=== PATIENT | female | born 1975 | race African-American/Black ===

== ENCOUNTER 2020-04-27 19:26 | Emergency (ER) | payer BC ==
--- NOTE | 2020-04-27 20:36 | RAD REPORT ---
EXAM DESCRIPTION: US - Extrem Venous W Compress Ajay - 04/27/2020 8:28 pm CLINICAL HISTORY: Pain;Swelling Bilateral leg edema and swelling. COMPARISON: No comparisons TECHNIQUE: Real-time sonographic interrogation of the left and right lower extremity deep venous sys tems was performed. FINDINGS: Normal compressibility, flow augmentation, phasic flow and spontaneous flow is identified in both the left and right lower extremity deep venous systems. IMPRESSION: No sonographic evidence of left or right lower extremity deep venous thrombosis.
[2020-04-27 20:57] LABS: Absolute Lymphocytes (CBC) 2.8 K/uL (0.7-4.9); Hematocrit 38.4 % (36.0-45.0); Lymphocytes % 24.1 % (15.3-44.8); RBC Red Blood Cell Count 4.18 M/uL (3.86-4.86)
--- NOTE | 2020-04-27 21:00 | RAD REPORT ---
EXAM DESCRIPTION: RAD - Chest Single View - 04/27/2020 8:41 pm CLINICAL HISTORY: SWELLING Chest pain. COMPARISON: No comparisons FINDINGS: Portable technique limits examination quality. The lungs are grossly clear. The heart is normal in size. No displaced fractures. IMPRESSION: No acute intrathoracic process suspected.
[2020-04-27] MEDS ORDERED: HYDROCODONE/APAP 10/325 TAB ONE (21:01)
[2020-04-27 21:10] LABS: BUN Blood Urea Nitrogen 16 mg/dL (7-18); Bicarbonate 29 mmol/L (21-32); Glucose Level 89 mg/dL (74-106); NT PRO-BNP 87 pg/mL (<125); Potassium 4.6 mmol/L (3.5-5.1); Sodium Level 139 mmol/L (136-145)
--- NOTE | 2020-04-27 22:53 | ER ---
Nurse's Notes [facility] Name: Nadia Walker Age: 44 yrs Sex: Female : 1975 Arrival Date: 04/27/2020 Time: 19:31 Bed 17 Private MD: Diagnosis: Pain in left leg;Pain in right leg Presentation: 04/27 19:39 Chief complaint: Patient states: Bilateral leg swelling for 3 days. Covid since 04/14. ll1 Coronavirus screen: Client denies travel out of the [place] in the last 14 days. congestion, cough unrelated to allergies, difficulty breathing, Client presents with at least one sign or symptom that may indicate coronavirus-19. Standard/surgical mask placed on the client. Client reports previous positive COVID test result. Ebola Screen: Patient denies travel to an Ebola-affected area in the 21 days before illness onset. Initial Sepsis Screen: Does the patient meet any 2 criteria? HR > 90 bpm. No. Patient's initial sepsis screen is negative. Does the patient have a suspected source of infection? Yes: Productive cough/pneumonia. Risk Assessment: Do you want to hurt yourself or someone else? Patient reports no desire to harm self or others. Onset of symptoms was April 25, 2020. 19:39 Method Of Arrival: Wheelchair ll1 19:39 Acuity: JOSEFA 3 ll1 Historical: - Allergies: 19:42 No Known Allergies; ll1 - PMHx: 19:42 None; ll1 - PSHx: 19:42 None; ll1 - Immunization history:: Flu vaccine is up to date. - Social history:: Smoking status: Reported history of juuling and/or vaping. Patient denies any tobacco usage or history of. Screenin:00 Abuse screen: Denies threats or abuse. Nutritional screening: No deficits noted. em Tuberculosis screening: No symptoms or risk factors identified. Fall Risk None identified. Assessment: 22:00 General: Appears in no apparent distress. Behavior is calm, cooperative, appropriate em for age. Pain: Complains of pain in left leg and right leg. Neuro: Level of Consciousness is awake, alert, obeys commands, Oriented to person, place, time, situation. Cardiovascular: Patient's skin is warm and dry. Respiratory: Airway is patent Respiratory effort is even, unlabored, Respiratory pattern is regular, symmetrical. GI: No signs and/or symptoms were reported involving the gastrointestinal system. : No signs and/or symptoms were reported regarding the genitourinary system. EENT: No signs and/or symptoms were reported regarding the EENT system. 23:00 Reassessment: Patient and/or family updated on plan of care and expected duration. Pain ll2 level reassessed. Patient is alert, oriented x 3, equal unlabored respirations, skin warm/dry/pink. Vital Signs: 19:39 Pulse 93; Resp 18; Temp 97.6; Pulse Ox 99% ; Weight 101.6 kg; Height 5 ft. 5 in. ll1 (165.10 cm); Pain 8/10; 19:42 BP 119 / 79; ll1 19:39 Body Mass Index 37.28 (101.60 kg, 165.10 cm) ll1 ED Course: 19:31 Patient arrived in ED. cf2 19:39 Arm band placed on. ll1 19:41 Triage completed. ll1 19:41 Veronica Durant FNP-C is PHCP. kb 19:41 Floyd Oglesby MD is Attending Physician. kb 20:22 PHCP role handed off by Veronica Durant FNP-C cp 20:22 Frederick Pineda PA is PHCP. cp 20:27 US Extremity Venous W Compression Ajay In Process Unspecified. EDMS 20:47 Chest Single View XRAY In Process Unspecified. EDMS 22:00 Patient has correct armband on for positive identification. Bed in low position. Call em light in reach. Side rails up X 1. Pulse ox on. NIBP on. 22:00 No provider procedures requiring assistance completed. em 22:10 Zully Mishra, RN is Primary Nurse. ll2 22:40 Inserted saline lock: 20 gauge in left antecubital area, using aseptic technique. Blood jp3 collected. Patient maintains SpO2 saturation greater than 95% on room air. 23:00 IV discontinued, intact, bleeding controlled, No redness/swelling at site. Pressure ll2 dressing applied. Administered Medications: 20:52 Drug: [place] 10 mg-325 mg 1 tabs Route: PO; kb 23:20 Drug: Ativan 0.5 mg Route: IVP; Site: left antecubital; ll2 23:25 Follow up: Response: Medication administered at discharge. ll2 23:21 Drug: TORadol - Ketorolac 15 mg Route: IVP; Site: left antecubital; ll2 23:26 Follow up: Response: Medication administered at discharge. ll2 23:21 Drug: Lasix 20 mg Route: IVP; Site: left antecubital; ll2 23:25 Follow up: Response: Medication administered at discharge. ll2 Outcome: 22:52 Discharge ordered by . cp 23:26 Patient left the ED. ll2 23:30 Discharged to home ambulatory. ll2 23:30 Condition: stable 23:30 Discharge instructions given to patient, Instructed on discharge instructions, follow up and referral plans. medication usage, Demonstrated understanding of instructions, follow-up care, medications, Prescriptions given X 2. Signatures: Dispatcher [employer] Veronica Jacobson, SOLUTION ARCHITECT-C SOLUTION ARCHITECT-Russell Gomez, RN RN Frederick Benavidez PA PA Hi Mai jp3 Cipriano Woody cf2 Zully Mishra RN RN ll2 Celi Harvey RN RN ll1 Corrections: (The following items were deleted from the chart) 04/28 04:02 0212 23:30 Discharge instructions given to patient, Instructed on discharge ll2 instructions, follow up and referral plans. medication usage, Demonstrated understanding of instructions, follow-up care, medications, Prescriptions given X 3, ll2
--- NOTE | 2020-04-27 22:53 | EDPHYS ---
Physician Documentation [facility] Name: Nadia Walker Age: 44 yrs Sex: Female : 1975 Arrival Date: 04/27/2020 Time: 19:31 Bed 17 Private MD: ED Physician Floyd Oglesby HPI: 04/27 20:30 This 44 yrs old Black Female presents to ER via Wheelchair with complaints of Swelling kb of Lower Extremity. 20:30 The patient presents with pain, swelling. The complaints affect the right leg and left kb leg. Context: resulted from an unknown cause, the patient can fully bear weight, the patient is able to ambulate, Problem is a result from a previous injury: No. Onset: The symptoms/episode began/occurred 2 day(s) ago. Modifying factors: The symptoms are alleviated by nothing. the symptoms are aggravated by nothing. Associated signs and symptoms: Pertinent positives: swelling, Pertinent negatives calf tenderness, fever, nausea, numbness, rash, tingling, vomiting, warmth, weakness. Treatment prior to arrival includes: no previous treatment. Severity of symptoms: At their worst the symptoms were moderate, in the emergency department the symptoms are unchanged. The patient has not experienced similar symptoms in the past. The patient has been recently seen by a physician:. Pt reports swelling and pain to bilateral lower extremities from knees down that started 3 days ago. States she was seen by UC and told it was due to covid. Came in today because she didn't get any sleep last night due to pain. Historical: - Allergies: 19:42 No Known Allergies; ll1 - PMHx: 19:42 None; ll1 - PSHx: 19:42 None; ll1 - Immunization history:: Flu vaccine is up to date. - Social history:: Smoking status: Reported history of juuling and/or vaping. Patient denies any tobacco usage or history of. ROS: 20:29 Constitutional: Negative for fever, chills, and weight loss, Respiratory: Negative for kb shortness of breath, cough, wheezing, and pleuritic chest pain, Abdomen/GI: Negative for abdominal pain, nausea, vomiting, diarrhea, and constipation, MS/Extremity: Negative for injury and deformity, Skin: Negative for injury, rash, and discoloration, Neuro: Negative for headache, weakness, numbness, tingling, and seizure. 20:29 Cardiovascular: Positive for edema. Exam: 20:29 Constitutional: This is a well developed, well nourished patient who is awake, alert, kb and in no acute distress. Head/Face: Normocephalic, atraumatic. Chest/axilla: Normal chest wall appearance and motion. Nontender with no deformity. No lesions are appreciated. Cardiovascular: Regular rate and rhythm with a normal S1 and S2. No gallops, murmurs, or rubs. Normal PMI, no JVD. No pulse deficits. Respiratory: Lungs have equal breath sounds bilaterally, clear to auscultation and percussion. No rales, rhonchi or wheezes noted. No increased work of breathing, no retractions or nasal flaring. Abdomen/GI: Soft, non-tender, with normal bowel sounds. No distension or tympany. No guarding or rebound. No evidence of tenderness throughout. Skin: Warm, dry with normal turgor. Normal color with no rashes, no lesions, and no evidence of cellulitis. MS/ Extremity: Pulses equal, no cyanosis. Neurovascular intact. Full, normal range of motion. Neuro: Awake and alert, GCS 15, oriented to person, place, time, and situation. Cranial nerves II-XII grossly intact. Motor strength 5/5 in all extremities. Sensory grossly intact. Cerebellar exam normal. Normal gait. 22:55 ECG was reviewed by the Attending Physician. Vital Signs: 19:39 Pulse 93; Resp 18; Temp 97.6; Pulse Ox 99% ; Weight 101.6 kg; Height 5 ft. 5 in. ll1 (165.10 cm); Pain 8/10; 19:42 BP 119 / 79; ll1 19:39 Body Mass Index 37.28 (101.60 kg, 165.10 cm) ll1 MDM: 19:42 Patient medically screened. kb 20:29 Data reviewed: vital signs, nurses notes. Data interpreted: Pulse oximetry: on room air kb is 99 %. Interpretation: normal. 21:00 Differential diagnosis: DVT, cellulitis, kidney failure, CHF, cardiac arrythmia. cp 22:50 Counseling: I had a detailed discussion with the patient and/or guardian regarding: the historical points, exam findings, and any diagnostic results supporting the discharge/admit diagnosis, lab results, radiology results, the need for outpatient follow up, a family practitioner, to return to the emergency department if symptoms worsen or persist or if there are any questions or concerns that arise at home. 22:50 Response to treatment: VSS. Pain improved. Will discharge to home for continued cp monitoring. 02 19:44 Order name: CBC with Diff kb 04/27 19:44 Order name: Basic Metabolic Panel kb 04/27 19:44 Order name: BNP kb 04/27 19:44 Order name: CBC with Automated Diff; Complete Time: 22:07 EDMS 04/27 22:07 Interpretation: Normal except: WBC 11.50. cp 04/27 19:44 Order name: Basic Metabolic Panel; Complete Time: 22:07 EDMS 04/27 22:08 Interpretation: Normal except: CA 8.4. cp 04/27 19:44 Order name: NT PRO-BNP; Complete Time: 22:07 EDMS 04/27 22:46 Interpretation: NT PRO-BNP 87; Reviewed. cp 04/27 19:42 Order name: Chest Single View XRAY; Complete Time: 22:07 kb 04/27 19:42 Order name: US Extremity Venous W Compression Ajay; Complete Time: 20:43 kb 04/27 22:10 Order name: EKG; Complete Time: 22:11 cp 04/27 22:10 Order name: EKG - Nurse/Tech; Complete Time: 22:40 cp 04/27 22:10 Order name: Urine Dipstick-Ancillary (obtain specimen); Complete Time: 22:48 cp 04/27 22:10 Order name: Urine Test (obtain specimen); Complete Time: 22:48 cp EC:55 Rate is 77 beats/min. Rhythm is regular. CT interval is normal. QRS interval is normal. cp QT interval is normal. T waves are Inverted in leads III, aVR. Interpreted by me. Reviewed by me. Administered Medications: 20:52 Drug: [place] 10 mg-325 mg 1 tabs Route: PO; kb 23:20 Drug: Ativan 0.5 mg Route: IVP; Site: left antecubital; ll2 23:25 Follow up: Response: Medication administered at discharge. ll2 23:21 Drug: TORadol - Ketorolac 15 mg Route: IVP; Site: left antecubital; ll2 23:26 Follow up: Response: Medication administered at discharge. ll2 23:21 Drug: Lasix 20 mg Route: IVP; Site: left antecubital; ll2 23:25 Follow up: Response: Medication administered at discharge. ll2 Disposition: 04/27/20 22:52 Discharged to Home. Impression: Pain in left leg, Pain in right leg. - Condition is Stable. - Discharge Instructions: Musculoskeletal Pain, COVID-19. - Prescriptions for Vistaril 50 mg Oral capsule - take 1 capsule by ORAL route At bedtime As needed as needed for sleep; 20 capsule. Diclofenac Sodium 75 mg Oral Tablet Sustained Release - take 1 tablet by ORAL route 2 times per day; 30 tablet. - Medication Reconciliation Form, Thank You Letter, Antibiotic Education, Prescription Opioid Use form. - Follow up: Private Physician; When: 2 - 3 days; Reason: Recheck today's complaints. - Problem is new. - Symptoms have improved. Addendum: 05/04/2020 19:15 Co-signature as Attending Physician, Floyd Oglesby MD I agree with the assessment and t w4 plan of care. Signatures: Dispatcher [employer] Veronica Montalvo, PROPELLER TESTER-C PROPELLER TESTER-Ckb Frederick Pineda PA PA cp Floyd Oglesby MD MD tw4 Zully Mishra RN RN ll2 Celi Harvey RN RN ll1 Corrections: (The following items were deleted from the chart) 04/27 22:08 22:07 Normal except. cp cp 22:12 22:10 Chest Single View+RAD.RAD.BRZ ordered. [facility] 23:26 22:52 04/27/2020 22:52 Discharged to Home. Impression: Pain in left leg; Pain in right ll2 leg. Condition is Stable. Forms are Medication Reconciliation Form, Thank You Letter, Antibiotic Education, Prescription Opioid Use. Follow up: Private Physician; When: 2 - 3 days; Reason: Recheck today's complaints. Problem is new. Symptoms have improved. cp
[2020-04-27] MEDS ORDERED: FUROSEMIDE 20 MG/ 2ML VIAL ONE (23:02)
[2020-04-27] MEDS ORDERED: KETOROLAC 30 MG/ML INJ ONE (23:03)
[2020-04-27] MEDS ORDERED: LORazepam 2 MG/ML VIAL ONE (23:03)
[2020-04-27 23:40] VITALS: TEMP 97.6; O2SAT 99
[2020-04-27 23:41] VITALS: BP 119/79
--- NOTE | 2020-04-29 07:54 | EKG ---
Test Date: 2020-04-27 Test Time: 22:45:28 Shredded Filler Machine Wrapper Layer: IZZY MEASUREMENT RESULTS: Intervals: Rate: 77 MN: 122 QRSD: 76 QT: 356 QTc: [address]: P: 48 MN: 122 QRS: 23 T: 12 INTERPRETIVE STATEMENTS: Normal sinus rhythm Normal ECG No previous ECG available for comparison Electronically Signed On 04-29-20 07:53:02 DIELECTRIC EMBOSSING MACHINE OPERATOR by Jean Paul Roy
== END 2020-04-27 23:26 | disposition home or self-care (01) ==
LOC: ER 19:26
DX: M79.605 Pain in left leg (principal); M79.604 Pain in right leg; R60.9 Edema, unspecified
CPT/HCPCS: 93005; 85025; 80048; 36415; 83880; 71045; 93970; 96375; 96374; 99284; J1940